=== PATIENT | male | born 1970 | race Caucasian/White ===

== ENCOUNTER 2016-10-09 12:07 | Day surgery (SDC) | payer OTHER ==
[~2016-10-09 12:07] MED LIST: FLON0.053; RANI150 PO; TRAZ50TA4 PO; Z.0.NO CURRENT MEDS
[2016-10-09 14:10] VITALS: BP 154/90; PULSE 53; RESP 20; TEMP 98.5; O2SAT 93
[2016-10-09 14:25] VITALS: BP 153/91; PULSE 68; RESP 20; O2SAT 100
[2016-10-09] MEDS ORDERED: LIDOCAINE HCL 1% PF 30 ML VIAL ONE (15:57)
--- NOTE | 2016-10-09 16:20 | RADRPT ---
EXAM DATE/TIME: 10/09/2016 00:00 [facility] COMPARISON: No previous studies available for comparison. EXTERNAL COMPARISON: [facility], CT SOFT TISSUE NECK, Sep 21 2016 INDICATIONS : Enlarged lymph node. MEDICAL HISTORY : Enlarged lymph node. SURGICAL HISTORY : None. ENCOUNTER: Initial ACUITY: 1 month PAIN SCORE: 2/10 LOCATION: Right neck ORGAN: Right lymph node SPECIMENS: Four core specimen(s) submitted for pathologic evaluation. DEVICE: 18 gauge Bio Pince needle Post procedure scanning reveals no hematoma or other complication. The possibility does exist that the tissue obtained will be non-diagnostic. If the sample is non-debra gnostic a repeat biopsy or surgical biopsy may need to be performed. TECHNIQUE: 1. Ultrasound guidance for needle biopsy. 2. Needle biopsy. The risks, benefits, and alternatives to ultrasound guided needle biopsy were explained to the patien t in detail including the risk of bleeding and infection. Written and verbal informed consent was ob tained. With the patient on the ultrasound table, images were obtained. Overlying skin was prepped and drape d in the usual sterile fashion and Lidocaine was utilized as a local anesthetic. A needle was advanced into the identified target and the number of specimens as above obtained and angel bmitted for pathologic evaluation. The patient tolerated the procedure well and left the ultrasound suite in stable condition. CONCLUSION: Uncomplicated ultrasound guided needle biopsy lymph node right neck Ashu Andrews MD FACR on October 09, 2016 at 16:18 Board Certified Radiologist. This report was verified electronically.
== END 2016-10-09 14:30 | disposition home or self-care (01) ==
LOC: HRAD 12:07
PROVIDERS: ATTEND Surgery
DX: R22.1 Localized swelling, mass and lump, neck (principal)
CPT/HCPCS: 38505; 76942; 88305; 88333; C1729; 42400

== ENCOUNTER 2016-10-30 17:29 | Emergency (ER) | payer OTHER ==
[~2016-10-30] VITALS: Ht 177.8 cm; Wt 84.9 kg
[2016-10-30 17:33] VITALS: BP 146/86; PULSE 62; RESP 18; TEMP 97.8; O2SAT 99
[2016-10-30] MEDS ORDERED: HYDR-3580 PO (17:50)
[2016-10-30] MEDS ORDERED: AMBI10TA PO (17:50)
--- NOTE | 2016-10-30 18:03 | PD ---
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 North. Released from the hospital today He was doing really well, but then developed intractable hiccups on the way home. They tried multiple physical maneuvers and other studies here to the hiccups but hasn't really work. He took an Ambien which hasn't helped. He's never really had trouble before. He called his surgeon and told to come to the emergency department locally. He has prescription for antibiotics and steroids. History Past Medical History Narrative Medical Squamous cell carcinoma Social History Alcohol Use: Yes (occasional) Tobacco Use: No Allergies-Medications (Allergen,Severity, Reaction): Coded Allergies: No Known Allergies (Verified , 10/30/16) Reported Meds & Prescriptions Reported Meds & Active Scripts Active Reported Ambien (Zolpidem Tartrate) 10 Mg Tab 10 Mg PO HS PRN Hydrocodone-Acetaminophen 7.5-325 mg Tab 1 Tab PO Q6H PRN Review of Systems Except as stated in HPI: all other systems reviewed are Neg Physical Exam Narrative GENERAL: Sonia well-appearing 46-year-old man, no acute distress. Intractable hiccups. SKIN: Focused skin assessment warm/dry. ENT: No nasal bleeding or discharge. Mucous membranes pink and moist. Surgical incision right sided neck well-healing. MACHO drain in place. Then sinus fluid in the drain. NECK: Trachea midline. CARDIOVASCULAR: Regular rate and rhythm. No murmur appreciated. RESPIRATORY: No accessory muscle use. Clear to auscultation. Breath sounds equal bilaterally. GASTROINTESTINAL: Abdomen soft, non-tender, nondistended. Hepatic and splenic margins not palpable. MUSCULOSKELETAL: No obvious deformities. No edema. NEUROLOGICAL: Awake and alert. No obvious cranial nerve deficits. Motor grossly within normal limits. Normal speech. Data Data Last Documented VS Vital Signs Date Time Temp Pulse Resp B/P Pulse Ox O2 Delivery O2 Flow Rate FiO2 10/30/16 17:33 97.8 62 18 146/86 99 Orders Chlorpromazine Inj (Thorazine Inj) (10/30/16 17:45) Dexamethasone Inj (Decadron Inj) (10/30/16 19:15) Sodium Chlor 0.9% 1000 Ml Inj (Ns 1000 M (10/30/16 19:15) Basic Metabolic Panel (Bmp) (10/30/16 19:13) Complete Blood Count With Diff (10/30/16 19:13) Morphine Inj (Morphine Inj) (10/30/16 19:15) [facility] Medical Decision Making Medical Screen Exam Complete: Yes Emergency Medical Condition: Yes Differential Diagnosis Intractable hiccups, phrenic nerve irritation, mass, other Narrative Course Medical decision-making new 39 several man with intractable hiccups. Recent ENT surgery. We'll try 50 mg IM Thorazine, reassess. 7:00 PM: Spoke with PA on-call for Dr. North. Is comfortable with IV steroids, continue oral steroids. Likely prescribed. No other suggestions for treatment. We'll check CBC and BMP, IV steroids, reassess. Patient was sent of the neck, provider to follow-up on results of diagnostic studies, and response to treatment. Tomi Azar MD Oct 30, 2016 18:03
[2016-10-30] MEDS ORDERED: DEXAMETHASONE SOD PHOS 20 MG/5 ML VIAL IV PUSH ONE (19:15)
[2016-10-30] MEDS ORDERED: MORPHINE SULFATE 4 MG/ML INJ IV PUSH ONE (19:15)
[2016-10-30] MEDS ORDERED: SODIUM CHLOR 0.9% 1000 ML INJ 1,000 ML IV SCH (19:15)
--- NOTE | 2016-10-30 19:28 | PD ---
Data Data Last Documented VS Vital Signs Date Time Temp Pulse Resp B/P Pulse Ox O2 Delivery O2 Flow Rate FiO2 10/30/16 20:32 72 18 98 10/30/16 20:31 144/80 Room Air 10/30/16 17:33 97.8 Orders Chlorpromazine Inj (Thorazine Inj) (10/30/16 17:45) Dexamethasone Inj (Decadron Inj) (10/30/16 19:15) Sodium Chlor 0.9% 1000 Ml Inj (Ns 1000 M (10/30/16 19:15) Basic Metabolic Panel (Bmp) (10/30/16 19:13) Complete Blood Count With Diff (10/30/16 19:13) Morphine Inj (Morphine Inj) (10/30/16 19:15) Metoclopramide Inj (Reglan Inj) (10/30/16 19:30) Diphenhydramine Inj (Benadryl Inj) (10/30/16 19:30) Labs Laboratory Tests Test 10/30/16 19:25 White Blood Count 23.2 TH/MM3 Red Blood Count 4.82 MIL/MM3 Hemoglobin 14.3 GM/DL Hematocrit 42.4 % Mean Corpuscular Volume 88.0 FL Mean Corpuscular Hemoglobin 29.6 PG Mean Corpuscular Hemoglobin 33.7 % Concent Red Cell Distribution Width 12.6 % Platelet Count 236 TH/MM3 Mean Platelet Volume 9.8 FL Neutrophils (%) (Auto) 87.4 % Lymphocytes (%) (Auto) 6.2 % Monocytes (%) (Auto) 5.6 % Eosinophils (%) (Auto) 0.7 % Basophils (%) (Auto) 0.1 % Neutrophils # (Auto) 20.3 TH/MM3 Lymphocytes # (Auto) 1.4 TH/MM3 Monocytes # (Auto) 1.3 TH/MM3 Eosinophils # (Auto) 0.2 TH/MM3 Basophils # (Auto) 0.0 TH/MM3 CBC Comment DIFF FINAL Differential Comment Sodium Level 143 MEQ/L Potassium Level 3.7 MEQ/L Chloride Level 109 MEQ/L Carbon Dioxide Level 25.3 MEQ/L Anion Gap 9 MEQ/L Blood Urea Nitrogen 10 MG/DL Creatinine 0.94 MG/DL Estimat Glomerular Filtration 86 ML/MIN Rate Random Glucose 130 MG/DL Calcium Level 8.6 MG/DL [facility] Supervised Visit with CORAL: No Narrative Course Patient care assumed from Dr. Azar at 1900. This is a 46-year-old male who presents emergency Department with intractable hiccups. Has a notable history of a recent resection on the right side of his neck. Phrenic irritation needs to be considered. Patient initially responding to Thorazine was length in the interval between hiccups. Hiccups of returned at 1930. He does also have some pain. Additional medications have been ordered. We'll continue to monitor and check electrolyte. Patient lecture lites are within normal limits, does have an elevated white blood cell count but did have surgery today and is on steroids. He has a prescription for prednisone taper at home. There is no neck tenderness and no neck swelling and he has full nontender range of motion of his neck. The area is not warm and not draining. I have low index suspicion that there is significant postoperative complication. Is Now Resolved. He Did Not Require Any Additional Medications besides Thorazine, Decadron and Morphine That Was Ordered by Dr. Azar. He Will Be Placed on Thorazine for the next week and he will follow-up with his surgeon. The findings were discussed with the patient and he is stable for discharge. Diagnosis Primary Impression: Hiccups Additional Instruction: Effusion experience any difficulty breathing difficulty swallowing or any swelling of the neck please return to the emergency department. Med/Other Pt SpecificInfo: Prescription(s) given Scripts Chlorpromazine 25 Mg Tab25 Mg PO Q8HR PRN (HICCOUGHS) 7 Days Ref 0 Prov:David Del Angel MD 10/30/16 Disposition: 01 DISCHARGE HOME Condition: Stable David Del Angel MD Oct 30, 2016 19:27
[2016-10-30] MEDS ORDERED: METOCLOPRAMIDE HCL 10 MG/2 ML VIAL IV PUSH ONE (19:30)
[2016-10-30] MEDS ORDERED: diphenhydrAMINE HCL 50 MG/ML VIAL IV PUSH ONE (19:30)
[2016-10-30 19:41] VITALS: BP 147/84; PULSE 74; RESP 18; O2SAT 98
[2016-10-30 19:48] LABS: AUTOMATED NEUTROPHIL # 20.3 TH/MM3 (1.8-7.7); BASOPHIL % 0.1 % (0.0-2.0); EOSINOPHIL # 0.2 TH/MM3 (0-0.4); EOSINOPHIL % 0.7 % (0.0-4.0); HEMATOCRIT 42.4 % (39.0-51.0); HEMO FLAGS DIFF FINAL; LYMPH % 6.2 % (9.0-44.0); LYMPHOCYTE # 1.4 TH/MM3 (1.0-4.8); MEAN CORPUSCULAR HEMOGLOBIN 29.6 PG (27.0-34.0); MEAN CORPUSCULAR HGB CONC 33.7 % (32.0-36.0); MONO % 5.6 % (0.0-8.0); NEUT % 87.4 % (16.0-70.0); PLATELET COUNT 236 TH/MM3 (150-450); RED BLOOD COUNT 4.82 MIL/MM3 (4.50-5.90); RED CELL DISTRIBUTION WIDTH 12.6 % (11.6-17.2); WHITE BLOOD COUNT 23.2 TH/MM3 (4.0-11.0)
[2016-10-30 19:56] LABS: POTASSIUM 3.7 MEQ/L (3.5-5.1)
[2016-10-30 19:59] LABS: BICARBONATE 25.3 MEQ/L (21.0-32.0)
[2016-10-30] MEDS ORDERED: CHLO25TA38 PO ×2 (20:14→20:15)
[2016-10-30 20:31] VITALS: BP 144/80; PULSE 72; RESP 18; O2SAT 98
== END 2016-10-30 20:35 | disposition home or self-care (01) ==
LOC: PHED 17:29
DX: R06.6 Hiccough (principal)
CPT/HCPCS: 80048; 85025; 96361; 96372; 96374; 96375; 99284; J1100; J2270; J3230; J7030

== ENCOUNTER 2017-01-07 03:14 | Emergency (ER) | payer OTHER ==
[~2017-01-07] VITALS: Ht 177.8 cm; Wt 72.3 kg
[~2017-01-07 03:14] MED LIST changes: +AMBI10TA PO; +CHLO25TA38 PO; -FLON0.053; +HYDR-3580 PO; -RANI150 PO; -TRAZ50TA4 PO; -Z.0.NO CURRENT MEDS
[2017-01-07 03:21] VITALS: BP 128/80; PULSE 95; RESP 12; TEMP 97.9; O2SAT 98
[2017-01-07] MEDS ORDERED: HYDR-3534 PO (03:27)
[2017-01-07] MEDS ORDERED: ZOFR4TAB PO (03:27)
[2017-01-07] MEDS ORDERED: SODIUM CHLOR 0.9% 1000 ML INJ 1,000 ML IV ONE (03:35)
[2017-01-07] MEDS ORDERED: SODIUM CHLORIDE 0.9% FLUSH 10 ML FLUSH IVF PRN (03:45)
[2017-01-07] MEDS ORDERED: ONDANSETRON HCL 4 MG/2 ML VIAL IVP ONE (03:45)
[2017-01-07] MEDS ORDERED: MORPHINE SULFATE 8 MG/ML INJ IV PUSH ONE (03:45)
[2017-01-07 04:05] VITALS: BP 137/90; PULSE 83; RESP 16; O2SAT 100
--- NOTE | 2017-01-07 04:17 | RADRPT ---
EXAM DATE/TIME: 01/07/2017 03:38 [facility] COMPARISON: No previous studies available for comparison. INDICATIONS : Short of breath and vomiting. MEDICAL HISTORY : Carcinoma, tonsillar. SURGICAL HISTORY : Port placement. ENCOUNTER: Initial ACUITY: 1 day PAIN SCORE: 5/10 LOCATION: Bilateral chest FINDINGS: A single view of the chest demonstrates the lungs to be symmetrically aerated without evidence of mas s, infiltrate or effusion. The cardiomediastinal contours are unremarkable. Osseous structures are intact. [id number] catheter tip projects over the cavoatrial junction. CONCLUSION: The lungs are clear. Donald Cook MD on January 07, 2017 at 4:15 Board Certified Radiologist. This report was verified electronically.
[2017-01-07 04:19] LABS: AUTOMATED NEUTROPHIL # 1.7 TH/MM3 (1.8-7.7); BASOPHIL % 0.2 % (0.0-2.0); EOSINOPHIL % 0.4 % (0.0-4.0); HEMATOCRIT 31.1 % (39.0-51.0); LYMPH % 15.7 % (9.0-44.0); LYMPHOCYTE # 0.4 TH/MM3 (1.0-4.8); MEAN CELL VOLUME 87.8 FL (80.0-100.0); MEAN CORPUSCULAR HEMOGLOBIN 29.9 PG (27.0-34.0); MONO % 11.7 % (0.0-8.0); PLATELET COUNT 96 TH/MM3 (150-450); RED BLOOD COUNT 3.54 MIL/MM3 (4.50-5.90); RED CELL DISTRIBUTION WIDTH 12.7 % (11.6-17.2); WHITE BLOOD COUNT 2.4 TH/MM3 (4.0-11.0)
[2017-01-07 04:23] LABS: HEMO FLAGS DIFF FINAL
[2017-01-07 04:25] LABS: CHLORIDE 99 MEQ/L (98-107); POTASSIUM 3.6 MEQ/L (3.5-5.1); SODIUM (NA) 132 MEQ/L (136-145)
[2017-01-07 04:29] LABS: ANION GAP 10 MEQ/L (5-15); BICARBONATE 22.9 MEQ/L (21.0-32.0); BLOOD UREA NITROGEN 13 MG/DL (7-18)
[2017-01-07] MEDS ORDERED: METOCLOPRAMIDE HCL 10 MG/2 ML VIAL IV PUSH ONE (04:30)
[2017-01-07 04:32] LABS: ALT (GPT) 32 U/L (12-78); AST (GOT) 16 U/L (15-37); GLOMERULAR FILTRATION RATE 81 ML/MIN (>89)
[2017-01-07 04:33] LABS: TOTAL BILIRUBIN ADULT 0.8 MG/DL (0.2-1.0)
[2017-01-07 04:35] LABS: ALKALINE PHOSPHATASE 71 U/L (45-117)
[2017-01-07 05:05] VITALS: BP 123/83; PULSE 83; RESP 16; O2SAT 100
--- NOTE | 2017-01-07 05:26 | PD ---
HPI Chief Complaint: GI Complaint Time Seen by Provider: 03:35 Travel History International Travel<30 days: No Contact w/Intl Traveler<30days: No Traveled to known affect area: No History of Present Illness HPI 46-year-old male with known squamous cell carcinoma of the neck under the care of Dr. Oakley medical oncologist and Dr. Barnes radiation oncologist at [facility]. Patient presents for complaint of nausea vomiting dehydration and inability to tolerate any oral hydration. Patient completed chemotherapy with Dr. Oakley one week ago and completed his radiation oncology yesterday with Dr. Cleveland. Patient states this evening unable to tolerate swallowing secondary to throat pain. Patient has had increasing oral secretions and sticky secretions which have interfered with him being able to sleep. Patient reportedly contacted his covering physician for his radiation oncologist and was encouraged to come to the emergency room for IV fluids and anti-medic medications. Patient's had no fever or chills. Patient has a PEG tube and has been receiving nutrition and medications since PEG tube but has tried to drink fluids per his oncologist recommendation to keep secretions thin. Patient states that secretions are interfering with his rest is a seem to keep accumulating. Patient denies other concerns or complaints. No cough no pleuritic chest pain no shortness of breath. No abdominal pain. No report of coffee-ground emesis or jenifer hematemesis although there are some episodes of streaks of blood in his oral secretions and clear mucus. Patient denies other concerns or complaints. Diagnosis of carcinoma was made September 2016. Patient does not have a local oncologist. PFSH Past Medical History Narrative Medical Squamous cell carcinoma of the neck with excision chemotherapy radiation therapy ; occasional alcohol use: Nursing notes reviewed Cancer: Yes (TUMOR REMOVED FROM RIGHT TONSIL) Chemotherapy: Yes Diminished Hearing: No Radiation Therapy: Yes Tetanus Vaccination: Unknown Influenza Vaccination: No Past Surgical History Body Medical Devices: port Other Surgery: Yes (TUMOR REMOVED RIGHT NECK) Social History Alcohol Use: Yes (occasional) Tobacco Use: No Substance Use: No Allergies-Medications (Allergen,Severity, Reaction): Coded Allergies: No Known Allergies (Verified , 01/07/17) Reported Meds & Prescriptions Reported Meds & Active Scripts Active Zofran Liq (Ondansetron HCl) 4 Mg/5 Ml Soln 4 Mg PO Q6HR Reported Lortab (Hydrocodone-Acetaminophen) 7.5-325 Mg Tab 1 Tab PO Q4H PRN Zofran (Ondansetron HCl) 4 Mg Tab 4 Mg PO Q6HR PRN Narrative Medication Reglan 10 mg as needed Review of Systems Except as stated in HPI: all other systems reviewed are Neg General / Constitutional: No: Fever, Chills HENT: Positive: Sore Throat, No: Congestion Cardiovascular: No: Chest Pain or Discomfort Respiratory: No: Cough, Shortness of Breath Gastrointestinal: Positive: Nausea, Vomiting, Loss of Appetite, No: Abdominal Pain Genitourinary: No: Decreased Urinary Output Musculoskeletal: No: Myalgias, Arthralgias Skin: No Rash Neurologic: No: Weakness Psychiatric: Positive: Anxiety Hematologic/Lymphatic: No: Lymph Node Enlargement Physical Exam Narrative GENERAL: Well-developed well-nourished thin male in no acute distress no respiratory distress SKIN: Warm and dry. HEAD: Normocephalic. EYES: No scleral icterus. No injection or drainage. NECK: Supple, trachea midline. No JVD or lymphadenopathy. CARDIOVASCULAR: Regular rate and rhythm without murmurs, gallops, or rubs. RESPIRATORY: Breath sounds equal bilaterally. No accessory muscle use. GASTROINTESTINAL: Abdomen soft, non-tender, nondistended. MUSCULOSKELETAL: No cyanosis, or edema. BACK: Nontender without obvious deformity. No CVA tenderness. Data Data Last Documented VS Vital Signs Date Time Temp Pulse Resp B/P Pulse Ox O2 Delivery O2 Flow Rate FiO2 01/07/17 05:39 89 18 117/86 99 Room Air 01/07/17 03:21 97.9 Orders Complete Blood Count With Diff (01/07/17 03:35) Comprehensive Metabolic Panel (01/07/17 03:35) Lipase (01/07/17 03:35) Iv Access Insert/Monitor (01/07/17 03:35) Ecg Monitoring (01/07/17 03:35) Oximetry (01/07/17 03:35) Ondansetron Inj (Zofran Inj) (01/07/17 03:45) Sodium Chlor 0.9% 1000 Ml Inj (Ns 1000 M (01/07/17 03:35) Sodium Chloride 0.9% Flush (Ns Flush) (01/07/17 03:45) Chest, Single Ap (01/07/17 03:35) Morphine Inj (Morphine Inj) (01/07/17 03:45) Metoclopramide Inj (Reglan Inj) (01/07/17 04:30) Heparin Central Flush (Heparin Central F (01/07/17 05:45) Ondansetron Inj (Zofran Inj) (01/07/17 05:45) Acetamin-Hydrocod 325-7.5 Liq (Hycet 325 (01/07/17 06:15) Labs Laboratory Tests Test 01/07/17 03:50 White Blood Count 2.4 TH/MM3 Red Blood Count 3.54 MIL/MM3 Hemoglobin 10.6 GM/DL Hematocrit 31.1 % Mean Corpuscular Volume 87.8 FL Mean Corpuscular Hemoglobin 29.9 PG Mean Corpuscular Hemoglobin 34.0 % Concent Red Cell Distribution Width 12.7 % Platelet Count 96 TH/MM3 Mean Platelet Volume 8.4 FL Neutrophils (%) (Auto) 72.0 % Lymphocytes (%) (Auto) 15.7 % Monocytes (%) (Auto) 11.7 % Eosinophils (%) (Auto) 0.4 % Basophils (%) (Auto) 0.2 % Neutrophils # (Auto) 1.7 TH/MM3 Lymphocytes # (Auto) 0.4 TH/MM3 Monocytes # (Auto) 0.3 TH/MM3 Eosinophils # (Auto) 0.0 TH/MM3 Basophils # (Auto) 0.0 TH/MM3 CBC Comment DIFF FINAL Differential Comment Sodium Level 132 MEQ/L Potassium Level 3.6 MEQ/L Chloride Level 99 MEQ/L Carbon Dioxide Level 22.9 MEQ/L Anion Gap 10 MEQ/L Blood Urea Nitrogen 13 MG/DL Creatinine 0.99 MG/DL Estimat Glomerular Filtration 81 ML/MIN Rate Random Glucose 109 MG/DL Calcium Level 8.5 MG/DL Total Bilirubin 0.8 MG/DL Aspartate Amino Transf 16 U/L (AST/SGOT) Alanine Aminotransferase 32 U/L (ALT/SGPT) Alkaline Phosphatase 71 U/L Total Protein 7.5 GM/DL Albumin 3.6 GM/DL Lipase 146 U/L [facility] Medical Decision Making Medical Screen Exam Complete: Yes Emergency Medical Condition: Yes Medical Record Reviewed: Yes Interpretation(s) Last Impressions Chest X-Ray 01/07/17 0335 Signed Impressions: Service Date/Time: December 03:38 - CONCLUSION: The lungs are clear. Donald Cook MD CBC & BMP Diagram 01/07/17 03:50 Vital Signs Date Time Temp Pulse Resp B/P Pulse Ox O2 Delivery O2 Flow Rate FiO2 01/07/17 05:05 83 16 123/83 100 Room Air 01/07/17 04:05 100 Room Air 01/07/17 04:05 83 16 137/90 100 Room Air 01/07/17 04:03 16 01/07/17 03:21 97.9 95 12 128/80 98 Differential Diagnosis Nausea vomiting, dehydration, stomatitis, electrolyte disturbance Narrative Course [id number] accessed and patient received 1 L normal saline along with Zofran 4 mg IV and morphine sulfate 4 mg IV Patient continues to complain of nausea with decreased amount of episodes of spitting saliva or: Emesis streaked with blood Reglan 10 mg IV administered Patient resting comfortably and clinically improved Lab values resulted at about panel is within normal range however patient does show some mild pancytopenia total white cell count 2400 with absolute neutrophil count 1700 and platelet count of 96,000. Patient with mild anemia hemoglobin 10.3. Patient attempting to sip fluids orally. Patient's case discussed with his oncologist Dr. Cleveland who recommends patient to force fluid hydration as well as use water and carbonated beverages to help with keeping posterior pharynx hydrated and mucous membranes moist as he states that even though he has pain this will help to decrease the stickiness and collection of oral secretions. Patient informed of his oncologist recommendations. Plan is to allow patient to be discharged to home At time of discharge patient states that he feels nauseated again and complains of throat pain patient again reports that he did vomit his pain medication prior to arrival to the emergency department patient did receive a one-time dose of morphine 4 mg IV patient given additional dose of Zofran as well as oral dose of Lortab 7.5/375 per 15 cc. Physician Communication Physician Communication discussed with Dr Cleveland --patient's [place] oncologist -- increase oral hydration to assist with oral secretion management have patient call in the AM Diagnosis Primary Impression: Nausea and vomiting Qualified Code: R11.2 - Non-intractable vomiting with nausea, unspecified vomiting type Additional Impression: Neck malignant neoplasm Referrals: Oncologist [address] Cleveland --in AM Patient Instructions: General Instructions, Narcotic given in the ED Additional Instructions: Encourage/increase fluid hydration Follow-up with your oncologist Dr. Cleveland call office in a.m. Continue use as needed Zofran either sublingual or in liquid form as provided by prescription for nausea vomiting Continue to use as needed Reglan for nausea vomiting Return to the emergency department for pain fever vomiting or any concerns Med/Other Pt SpecificInfo: Prescription(s) given Scripts Ondansetron Liq (Zofran Liq)4 Mg/5 Ml Soln4 Mg PO Q6HR #240 ML Ref 0 Prov:Sussy Winter MD 01/07/17 Disposition: 01 DISCHARGE HOME Condition: Stable Sussy Winter MD Jan 07, 2017 05:26
[2017-01-07] MEDS ORDERED: ZOFR4SOL PO (05:28)
[2017-01-07 05:39] VITALS: BP 117/86; PULSE 89; RESP 18; O2SAT 99
[2017-01-07] MEDS ORDERED: ONDANSETRON HCL 4 MG/2 ML VIAL IV PUSH ONE (05:45)
[2017-01-07] MEDS ORDERED: ACETAMINOPHEN 325MG/HYDROcodone 7.5MG/15ML UDC PO ONE (06:15)
== END 2017-01-07 06:36 | disposition home or self-care (01) ==
LOC: PHED 03:14
DX: C76.0 Malignant neoplasm of head, face and neck (principal); R11.2 Nausea with vomiting, unspecified
CPT/HCPCS: 71010; 80053; 83690; 85025; 96361; 96374; 96375; 99284; J1642; J2270; J2405; J2765; J7030